=== PATIENT | female | born 2000 | race Two or more races ===

== ENCOUNTER 2018-08-29 10:25 | Emergency (ER) | payer OTHER ==
[~2018-08-29] VITALS: Ht 157.5 cm; Wt 49.0 kg
[~2018-08-29 10:25] MED LIST: AFLURIA 2045 MCG/0.9; TUSSIONEX PENNKI5 ML PO; ZITHROMAX200 MG PO
[2018-08-29] MEDS ORDERED: PAXIL20 MG (10:46)
[2018-08-29] MEDS ORDERED: CLONAZEPAM0.5 M1 (10:46)
[2018-08-29] MEDS ORDERED: VALTREX1000 MG (10:47)
== END 2018-08-29 13:31 | disposition home or self-care (01) ==
LOC: ER 10:25
DX: R22.0 Localized swelling, mass and lump, head (principal); T42.4X5A Adverse effect of benzodiazepines, initial encounter

== ENCOUNTER → 2024-05-11 | Emergency (ER) | payer OTHER ==
[~2024-05-11] VITALS: Ht 157.5 cm; Wt 43.1 kg
[~2024-05-11] MED LIST changes: +CLONAZEPAM0.5 M1; +DEXAMETHASONE SODIUM PHOSPHATE 4 MG/ML VIAL IM STA; +PAXIL20 MG; +SPIRONOLACTONE50 MG PO; +VALTREX1000 MG; +hydrOXYzine PAMOATE 50 MG CAPSULE PO STA
== END | disposition home or self-care (01) ==
LOC: ER 10:40
DX: E06.1 Subacute thyroiditis (principal); Z88.8 Allergy status to other drugs, medicaments and biological substances